=== PATIENT | male | born 1985 | race Caucasian/White ===

== ENCOUNTER 2020-04-21 10:35 | Emergency (ER) | payer OTHER, SELFPAY ==
--- NOTE | ~2020-04-21 | XR_ITS ---
EXAMINATION: XR knee LT 3V DATE: 04/21/2020 11:24 INDICATION: Medial left knee pain post injury. TECHNIQUE: Anteroposterior, oblique and crosstable lateral views of the left knee were obtained COMPARISON: None. FINDINGS: Alignment is normal. No fracture. Joint spaces are normal. No joint effusion/layering lipohemarthros is. Eccentric nonaggressive appearing sclerotic lesion along the posterior medial metaphyseal cortex of the proximal tibia for approximately 4.7 cm proximal to distal and measuring 1.3 cm in transaxial diameter. There is subtle outward bowing of the thickened cortex with no endosteal scalloping or colleen osteal reaction. 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 Soft tissue s are unremarkable. IMPRESSION: 1. No left knee joint effusion or acute osseous abnormality. 2. 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 Reviewed, dictated and finalized at [facility]. OR [employer]
[2020-04-21 10:54] VITALS: BP 147/99; PULSE 79; RESP 20; TEMP 36.5; O2SAT 97
--- NOTE | 2020-04-21 11:37 | ED.LOWEXIN ---
HPI - Extremity Injury (Lower) General Chief Complaint: Extremity Injury, Lower Stated Complaint: L KNEE PAIN S/P INJURY Time Seen by Provider: 04/21/20 11:00 Source: patient Mode of arrival: ambulatory Limitations: no limitations History of Present Illness HPI Narrative: This is a 35 year old male that presents to the ER for left knee injury sustained last night. Reports he was at work and a wall collapsed. Reports it hit the left side of his knee and forced it to buckle inward. Reports since he has had medial knee pain. Denies decreased ROM or numbness. Related Data Home Medications Medication Instructions Recorded Confirmed No Home Medications 04/21/20 04/21/20 Allergies Allergy/AdvReac Type Severity Reaction Status Date / Time No Known Allergies Allergy Unknown Unknown Verified 04/21/20 10:57 Review of Systems Review of Systems: Narrative: CONSTITUTIONAL: Denies fever SKIN: Denies rash MUSCULOSKELETAL: Reports joint pain, and myalgia. NEUROLOGIC: Denies numbness All systems reviewed & are unremarkable except as noted in HPI and below PMFSH Family History Family History (Updated 11/17/18 @ 17:11 by DOCTOR UNKNOWN) Grandparent Diabetes mellitus, Onset Age: 76 Family history of kidney disease, Onset Age: 76 Social History Social History Smoking status: Heavy tobacco smoker Alcohol intake: current Gender identity (if verbalized by the patient): Male Exam Narrative: Exam Narrative: GENERAL: Well-appearing, well-nourished, and in no acute distress. HEAD: Normocephalic, atraumatic. EYES: EOMI. EXTREMITIES: Normal range of motion. No edema or obvious deformity. Left knee with medial joint line tenderness. Normal DP pulses. Normal sensation SKIN: Warm, dry, no rash. NEURO: No focal deficits. Alert and oriented x3. PSYCH: Normal mood and affect Course Vital Signs Vital signs: Vital Signs Temperature 97.7 F 04/21/20 10:54 Pulse Rate 79 04/21/20 10:54 Respiratory Rate 04/21/20 10:54 Blood Pressure 147/99 H 04/21/20 10:54 Pulse Oximetry 97 04/21/20 10:54 Temperature 97.7 F 04/21/20 10:54 Pulse Rate 79 04/21/20 10:54 Respiratory Rate 04/21/20 10:54 Blood Pressure 147/99 H 04/21/20 10:54 Pulse Oximetry 97 12/13/20 10:54 MDM - Extremity Injury (Lower) MDM Narrative Medical decision making narrative: Patient presents the emergency department after an injury last night with left medial knee pain. He is afebrile and nontoxic-appearing. No erythema or warmth of the knee. No obvious deformity on exam. Normal sensation and peripheral pulses. Left knee x-rays without acute findings. Does show a benign bony lesion. Patient was updated on case findings. Placed in a knee immobilizer and given crutches. Will be given orthopedics for follow-up. He was given warnings to return to the ER Imaging Data Radiologist's impression: ITS Impressions Knee X-Ray 04/21/20 11:43 IMPRESSION: 1. No left knee joint effusion or acute osseous abnormality. 2. 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 Critical Care Time Critical Care Time Critical Care Time: No Discharge Plan Discharge Clinical Impression: Left knee sprain Qualifiers: Encounter type: initial encounter Involved ligament of knee: unspecified ligament Qualified Code(s): S83.92XA - Sprain of unspecified site of left knee, initial encounter Patient Disposition: Home, Self-Care Condition: Stable Instructions: Knee Sprain (ED) Additional Instructions: Return to the emergency department if you experience fever, redness and swelling of your leg, numbness, or any other symptoms that are concerning to you Wear knee immobilizer and use crutches. No weight on the affected leg. Ice and elevate extremity. Pain medication as needed and directed. Follow up with orthopedics for further care. Prescriptions
[2020-04-21 12:24] VITALS: PULSE 81; O2SAT 99
== END 2020-04-21 12:26 | disposition home or self-care (01) ==
PROVIDERS: Emergency Provider Emergency Medicine; PCP Family Medicine
DX: S83.92XA Sprain of unspecified site of left knee, initial encounter (principal); M89.9 Disorder of bone, unspecified; W20.1XXA Struck by object due to collapse of building, initial encounter
CPT/HCPCS: 73562; 99283

== ENCOUNTER 2021-08-04 17:46 | Emergency (ER) | payer OTHER, SELFPAY ==
--- NOTE | ~2021-08-04 | CT_ITS ---
EXAMINATION: CT brain wo con DATE: 08/04/2021 18:23 INDICATION: Fall due to syncopal episode. Head injury. TECHNIQUE: Computed tomography (CT) of the head was performed without intravenous contrast. The mA wa s adjusted according to patient size. Iterative reconstruction technique was employed. Exam dose: 60 5.33 mGy-cm total exam DLP. COMPARISON: None FINDINGS: No intracranial mass lesion or hemorrhage or cerebrovascular accident. No midline shift or mass effect . Normal bishop-white matter differentiation. No subdural or epidural hematoma. Normal vent ricular size. Orbital contents are unremarkable. There is patchy soft tissue thickening of the ethmoid air cells bi laterally. The mastoid air cells and included paranasal sinuses are otherwise unremarkable. No fracture or bone destruction of the cranial vault. IMPRESSION: No significant intracranial abnormality Patchy soft tissue thickening of the ethmoid air cells Reviewed, dictated and finalized at [facility]. Reviewed, dictated and finalized at [facility].
--- NOTE | ~2021-08-04 | CT_ITS ---
EXAMINATION: CT cervical spine wo con DATE: 08/04/2021 18:22 INDICATION: Fall due to syncopal episode. TECHNIQUE: Computed tomography (CT) of the cervical spine was performed without intravenous contrast. Automated exposure control and iterative reconstruction technique were employed. Exam dose: 415.51 mGy-cm total exam DLP. COMPARISON: None FINDINGS: There is straightening of the cervical spine. C1 and C2 are normally aligned and the odontoid process is intact. No fracture or dislocation or lock ed facet or prevertebral soft tissue swelling. There is posterior spurring at C3-4. Cervical interspaces are preserved. IMPRESSION: Straightening of the cervical spine, which may be due to muscle spasm and/or positioning Reviewed, dictated and finalized at [facility]. Reviewed, dictated and finalized at [facility]. IMPRESSION: Straightening of the cervical spine, which may be due to muscle sp asm and/or positioning
[2021-08-04 17:52] VITALS: BP 146/100; PULSE 74; RESP 14; TEMP 37.1; O2SAT 97
--- NOTE | 2021-08-04 17:53 | PC.NURSE ---
EDP Alcaraz notified of patient's symptoms and presentation. Per EDP Alcaraz via verbal order read-back, order CT scan of head and cervical spine.
--- NOTE | 2021-08-04 17:57 | ECG_ITS ---
Measurements Intervals [place] Rate: 73 P: 46 PA: 182 QRS: 36 QRSD: 108 T: 25 QT: 385 QTc: 424 Interpretive Statements SINUS RHYTHM WITH SINUS ARRHYTHMIA NONSPECIFIC T-WAVE ABNORMALITY NO PREVIOUS ECG AVAILABLE FOR COMPARISON Electronically Signed On 08-05-2021 17:07:32 CDT by Ricardo Soto M.D.
[2021-08-04 17:58] VITALS: PULSE 80; RESP 23; O2SAT 97
[2021-08-04 18:13] LABS: Basophils Absolute Auto 0.1 K/mm3 (0.0-0.1); Basophils Percent Auto 0.6 % (0.2-1.2); Eosinophils Absolute Auto 0.1 K/mm3 (0-0.3); Eosinophils Percent Auto 1.1 % (0-4.4); Hemoglobin 15.8 g/dL (14.0-18.0); Immature Granulocyte Absolute 0.04 K/mm3 (0.00-0.031); Immature Granulocyte Percent A 0.5 % (0-0.5); Lymphocytes Absolute Auto 2.43 K/mm3 (0.9-3.2); Lymphocytes Percent Auto 30.7 % (18.3-44.2); Mean Corpuscular HGB Conc 34.3 g/dl (32-36); Mean Corpuscular Hemoglobin 30.7 pg (26-34); Mean Corpuscular Volume 89.5 fl (80-100); Monocytes Absolute Auto 0.6 K/mm3 (0.1-0.6); Monocytes Percent Auto 7.4 % (2.6-8.5); Neutrophils Absolute Auto 4.7 K/mm3 (1.3-6.7); Neutrophils Percent Auto 59.7 % (45.5-73.1); Platelet Count Result 229 k/mm3 (150-375); Red Blood Count 5.14 M/mm3 (4.6-6.20); Red Cell Distribution Width 12.1 % (11.5-14.5); White Blood Count 7.9 K/mm3 (4.5-10.0)
--- NOTE | 2021-08-04 18:13 | PC.NURSE ---
Pt to CT scan via stretcher.
--- NOTE | 2021-08-04 18:17 | ED.SYNCOPE ---
HPI - Syncope General Chief Complaint: Syncope Stated Complaint: fell down stairs, head injury Time Seen by Provider: 08/04/21 18:00 Source: patient Mode of arrival: ambulatory Limitations: no limitations History of Present Illness HPI narrative: Patient is a 36-year-old male complaining of a syncopal episode while working after being exposed to chemical. 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 Patient admits to hitting the back of his head after passing out and is complaining of the back of his head hurting. Patient denies any neck, chest, back, abdomen, pelvis, hip or any extremity pain/injury. Patient states that he was able to stand up after the episode, and ambulate without difficulty. Related Data Home Medications Medication Instructions Recorded Confirmed No Home Medications 04/21/20 08/04/21 Allergies Allergy/AdvReac Type Severity Reaction Status Date / Time codeine AdvReac Itching Verified 08/04/21 18:05 Review of Systems Review of Systems: All systems reviewed & are unremarkable except as noted in HPI and below Constitutional: Constitutional: Denies body ache(s), Denies chills, Denies excessive sweating, Denies fatigue, Denies fever(s), Denies headache(s), Denies lethargy, Denies malaise, Denies weakness and Denies weight loss Eyes: Eyes: Denies blurry vision, Denies change in vision and Denies loss of vision ENT: Denies dizziness, Denies ear discharge, Denies headache(s), Denies lip swelling, Denies epistaxis, Denies nasal congestion, Denies neck pain, Denies throat swelling and Denies tongue swelling Cardiovascular: Cardiovascular: Denies chest pain, Denies chest pain at rest, Denies chest pain with activity, Denies diaphoresis, Denies rapid heart rate, Denies edema, Denies irregular heart rhythm, Denies lightheadedness, Denies palpitations, Denies dyspnea and Denies dyspnea on exertion Respiratory: Respiratory: Denies chest congestion, Denies cough, Denies hemoptysis, Denies dyspnea and Denies dyspnea on exertion Gastrointestinal: Gastrointestinal: Denies abdominal pain, Denies melena, Denies hematochezia, Denies diarrhea, Denies nausea, Denies vomiting and Denies hematemesis Musculoskeletal: Musculoskeletal: Denies abnormal gait, Denies deformity, Denies joint swelling, Denies limited range of motion, Denies neck pain and Denies numbness Neurologic: Denies Abnormal speech present, Denies abnormal gait, Denies confusion, Denies dizziness, Denies focal weakness, Denies loss of vision, Denies numbness, Denies Other visual disturbances, Denies Sensory deficit (Neuro) and Denies weakness Psychiatric: Psychiatric: Denies confusion, Denies depression, Denies auditory hallucinations, Denies homicidal ideation and Denies suicidal ideation Endocrine: Endocrine: Denies cold intolerance, Denies excessive sweating, Denies fatigue, Denies heat intolerance and Denies palpitations Hematologic/Lymphatic: Hematologic/Lymphatic: Denies easy bleeding and Denies easy bruising Allergic/Immunologic: Allergic/Immunologic: Denies lip swelling, Denies throat swelling and Denies tongue swelling PMFSH Past Medical History Medical History BMI 29.0-29.9,adult COVID-19 (~05/30/21) positive test 06/01/2021 Exposure to COVID-19 virus (~05/23/21) Fever (~05/26/21) Joint pain Tobacco abuse Family History Family History Grandparent Diabetes mellitus, Onset Age: 76 Family history of kidney disease, Onset Age: 76 Social History Social His
[2021-08-04 18:19] LABS: Alanine Aminotransferase 19 U/L (4-50); Albumin Level 4.6 g/dL (3.5-5.1); Alkaline Phosphatase 71 U/L (38-126); Anion Gap 8 mmol/L (8-16); Aspartate Amino Transferase 36 U/L (17-59); Bilirubin,Total 0.2 mg/dL (0.2-1.3); Blood Urea Nitrogen 16 mg/dL (9-20); Carbon Dioxide 28 mmol/L (22-30); Chloride 102 mmol/L (98-107); Estimated CRCL calculation 95 ml/min; Estimated Glomerular Filt Rate > 60; Glucose 99 mg/dL (65-110); Potassium 3.9 mmol/L (3.4-5.0); Sodium 138 mmol/L (137-145)
[2021-08-04] MEDS: SODIUM CHLORIDE 0.9% IV 1,000 ML 999 ML IV CONT (19:02)
[2021-08-04] MEDS: KETOROLAC 30 MG/ML VIAL (*BKC) IV PUSH (19:02)
[2021-08-04 19:03] VITALS: BP 126/87; PULSE 65; RESP 14; O2SAT 98
--- NOTE | 2021-08-04 19:21 | PC.NURSE ---
Assumed care of pt at this time, report taken from Debbie QUEEN. Pt alert and upright on stretcher, updated on POC.
[2021-08-04] MEDS: PROMETHAZINE HCL 25 MG/ML AMPUL 12.5 MG IV PUSH (20:57)
[2021-08-04] MEDS: SODIUM CHLORIDE 0.9% IV 50 ML 999 ML (20:58)
[2021-08-04 21:25] VITALS: BP 130/82; PULSE 71; RESP 16; O2SAT 98
== END 2021-08-04 21:26 | disposition home or self-care (01) ==
PROVIDERS: Emergency Provider Emergency Medicine; PCP Family Medicine
DX: T65.6X1A Toxic effect of paints and dyes, not elsewhere classified, accidental (unintentional), initial encounter (principal); R55 Syncope and collapse; Z86.16 Personal history of COVID-19; F17.210 Nicotine dependence, cigarettes, uncomplicated; R94.31 Abnormal electrocardiogram [ECG] [EKG]
CPT/HCPCS: 36415; 70450; 72125; 80053; 85025; 93005; 96361; 96374; 96375; 99284; J1885; J2550; J7030